=== PATIENT | male | born 1950 | race Caucasian/White ===

== ENCOUNTER 2016-08-26 04:01 | Inpatient (IN) | payer OTHER, BC ==
[~2016-08-26] VITALS: Ht 172.7 cm; Wt 87.0 kg
[~2016-08-26 04:01] MED LIST: AMLODIPINE-ATO1 EAC4 PO; ASPIR 8181 M1 PO; BENICAR20 MG PO; NORCO 5/3251 TABLET PO; PREDNISONE20 MG PO; ULORIC40 MG PO; VALIUM2 MG PO
[2016-08-26 04:40] LABS: HEMATOCRIT 42.8 % (38.0-50.0); MCH 29.5 PG (29.0-34.0); MCHC 34.8 G/DL (30.0-36.0); MCV 84.8 FL (86-99); MEAN PLAT.VOLUME 9.7 uM^3 (9.0-12.4); PLATELET COUNT 249 K/uL (156-360); RBC DIS.WIDTH-CV 13.6 % (11.8-14.6); RBC DIS.WIDTH-SD 41.5 % (39-53); RED BLOOD COUNT 5.05 M/uL (4.00-5.50); WHITE BLOOD COUNT 18.3 K/uL (4.1-10.2)
[2016-08-26 04:48] LABS: CHLORIDE 111 mEq/L (99-109); POTASSIUM 4.4 mEq/L (3.7-5.4); SODIUM 139 mEq/L (136-147)
[2016-08-26 04:50] LABS: GLUCOSE 102 mg/dL (70-99)
[2016-08-26 04:52] LABS: ANION GAP 8 MEQ/L (2-14)
[2016-08-26 04:54] LABS: GFR ESTIMATE (CALCULATED) > 59 mL/min/
[2016-08-26 04:55] LABS: UREA NITROGEN (BUN) 34 mg/dL (9-23)
[2016-08-26 06:50] LABS: ADD MIUA? NO; BILIRUBIN NEGATIVE; BLOOD NEGATIVE; COLOR YELLOW ((YELLOW)); GLUCOSE (STRIP) NEGATIVE; KETONES NEGATIVE; LEUKOCYTES NEGATIVE; NITRITE NEGATIVE; PROTEIN (STRIP) NEGATIVE; SPECIFIC GRAVITY 1.019 (1.000-1.030); UCUL ADDED? NO; UROBILINOGEN 0.2 MG/DL (0.2-1.0)
[2016-08-26 09:43] VITALS: BP 124/78
[2016-08-26 11:52] VITALS: BP 134/68
[2016-08-26 13:47] LABS: EOSINOPHIL (%) 0 % (0-5); HEMATOCRIT 41.2 % (38.0-50.0); IMMATURE GRANULOCYTE (%) 0.2 % (0.0-0.7); LYMPHOCYTE COUNT 0.6 K/uL (1.0-2.8); MCH 29.7 PG (29.0-34.0); MCHC 33.7 G/DL (30.0-36.0); MONOCYTE (%) 10.8 % (3-12); MONOCYTE COUNT 0.9 K/uL (0-0.8); NEUTROPHIL (%) 82.1 % (45-76); NEUTROPHIL COUNT 7.1 K/uL (1.8-6.4); RBC DIS.WIDTH-CV 13.9 % (11.8-14.6); RBC DIS.WIDTH-SD 44.1 % (39-53); RED BLOOD COUNT 4.68 M/uL (4.00-5.50)
[2016-08-26 13:49] LABS: ANION GAP 8 MEQ/L (2-14); CHLORIDE 108 MEQ/L (99-109); GFR ESTIMATE (CALCULATED) > 59 mL/min/; GLUCOSE 114 mg/dL (70-99); POTASSIUM 4.1 MEQ/L (3.7-5.4); SAMPLE HEMOLYSIS CHECK 0; SAMPLE ICTERIC CHECK 0; SAMPLE LIPEMIA CHECK 0; SODIUM 137 MEQ/L (136-147); UREA NITROGEN (BUN) 28 mg/dL (9-23)
[2016-08-26 13:56] LABS: WHITE BLOOD COUNT 8.6 K/uL (4.1-10.2)
[2016-08-26 14:25] LABS: MEAN PLAT.VOLUME 9.6 uM^3 (9.0-12.4); PLAT.SUFFICIENCY ADEQUATE; USER ID TLW
[2016-08-26 14:26] LABS: PLATELET COUNT 154 K/uL (156-360)
[2016-08-26 15:40] VITALS: BP 129/62
[2016-08-26] MEDS ORDERED: ULORIC40 MG PO (16:09)
[2016-08-26 19:52] VITALS: BP 107/65
[2016-08-26 23:48] VITALS: BP 106/61
[2016-08-27 03:47] VITALS: BP 115/72
[2016-08-27 07:18] VITALS: BP 131/72
[2016-08-27 07:28] LABS: HEMATOCRIT 41.2 % (38.0-50.0); MCH 29.5 PG (29.0-34.0); MCHC 33.5 G/DL (30.0-36.0); MEAN PLAT.VOLUME 10.5 uM^3 (9.0-12.4); PLATELET COUNT 179 K/uL (156-360); RBC DIS.WIDTH-CV 14.4 % (11.8-14.6); RBC DIS.WIDTH-SD 46.3 % (39-53); RED BLOOD COUNT 4.68 M/uL (4.00-5.50); WHITE BLOOD COUNT 13.8 K/uL (4.1-10.2)
[2016-08-27 07:34] LABS: ANION GAP 9 MEQ/L (2-14); CHLORIDE 107 MEQ/L (99-109); GFR ESTIMATE (CALCULATED) 59 mL/min/; GLUCOSE 117 mg/dL (70-99); POTASSIUM 4.2 MEQ/L (3.7-5.4); SAMPLE HEMOLYSIS CHECK 0; SAMPLE ICTERIC CHECK 0; SAMPLE LIPEMIA CHECK 0; SODIUM 139 MEQ/L (136-147); UREA NITROGEN (BUN) 21 mg/dL (9-23)
[2016-08-27 15:37] VITALS: BP 138/74
[2016-08-28 00:04] VITALS: BP 137/78
[2016-08-28 07:00] VITALS: BP 147/87
[2016-08-28 07:39] LABS: HEMATOCRIT 42.9 % (38.0-50.0); MCH 29.8 PG (29.0-34.0); MCHC 33.8 G/DL (30.0-36.0); MCV 88.1 FL (86-99); MEAN PLAT.VOLUME 10.4 uM^3 (9.0-12.4); PLATELET COUNT 197 K/uL (156-360); RBC DIS.WIDTH-CV 14.3 % (11.8-14.6); RBC DIS.WIDTH-SD 45.9 % (39-53); RED BLOOD COUNT 4.87 M/uL (4.00-5.50); WHITE BLOOD COUNT 15.6 K/uL (4.1-10.2)
[2016-08-28 08:07] LABS: ANION GAP 8 MEQ/L (2-14); CHLORIDE 106 MEQ/L (99-109); GFR ESTIMATE (CALCULATED) > 59 mL/min/; GLUCOSE 145 mg/dL (70-99); MAGNESIUM 1.7 mg/dl (1.3-2.7); POTASSIUM 4.3 MEQ/L (3.7-5.4); SAMPLE HEMOLYSIS CHECK 0; SAMPLE ICTERIC CHECK 0; SAMPLE LIPEMIA CHECK 0; SODIUM 134 MEQ/L (136-147); UREA NITROGEN (BUN) 14 mg/dL (9-23)
[2016-08-28 15:33] VITALS: BP 140/78
[2016-08-28 19:18] VITALS: BP 144/82
[2016-08-29] VITALS: BP 153/88
[2016-08-29 06:31] LABS: HEMATOCRIT 38.1 % (38.0-50.0); MCH 30.2 PG (29.0-34.0); MCHC 35.4 G/DL (30.0-36.0); MCV 85.2 FL (86-99); MEAN PLAT.VOLUME 10.5 uM^3 (9.0-12.4); PLATELET COUNT 193 K/uL (156-360); RBC DIS.WIDTH-SD 43.4 % (39-53); RED BLOOD COUNT 4.47 M/uL (4.00-5.50); WHITE BLOOD COUNT 15.3 K/uL (4.1-10.2)
[2016-08-29 06:57] LABS: ALKALINE PHOSPHATASE 65 IU/L (3-129); ALKALINE PHOSPHATASE 66 IU/L (3-129); ANION GAP 11 MEQ/L (2-14); CHLORIDE 108 MEQ/L (99-109); DIRECT BILIRUBIN 0.4 mg/dL (0.0-0.3); GFR ESTIMATE (CALCULATED) > 59 mL/min/; GLUCOSE 142 mg/dL (70-99); MAGNESIUM 1.7 mg/dl (1.3-2.7); POTASSIUM 3.6 MEQ/L (3.7-5.4); PREALBUMIN 8.6 mg/dL (10-40); SAMPLE HEMOLYSIS CHECK 0; SAMPLE ICTERIC CHECK 0; SAMPLE LIPEMIA CHECK 0; SODIUM 140 MEQ/L (136-147); TOTAL BILIRUBIN 1.1 MG/DL (0.0-1.0); TRIGLYCERIDES 97 MG/DL (Normal: <150); UREA NITROGEN (BUN) 17 mg/dL (9-23)
[2016-08-29 08:01] VITALS: BP 136/70
[2016-08-29 11:36] VITALS: BP 168/80
[2016-08-29 19:42] VITALS: BP 160/78
[2016-08-29 23:44] VITALS: BP 147/76
[2016-08-30 03:48] VITALS: BP 145/68
[2016-08-30 07:20] VITALS: BP 163/88
[2016-08-30 07:26] LABS: HEMATOCRIT 36.6 % (38.0-50.0); MCH 29.3 PG (29.0-34.0); MCHC 34.7 G/DL (30.0-36.0); MCV 84.3 FL (86-99); MEAN PLAT.VOLUME 10.1 uM^3 (9.0-12.4); PLATELET COUNT 193 K/uL (156-360); RBC DIS.WIDTH-CV 14.2 % (11.8-14.6); RED BLOOD COUNT 4.34 M/uL (4.00-5.50); WHITE BLOOD COUNT 12.9 K/uL (4.1-10.2)
[2016-08-30 07:46] LABS: ANION GAP 11 MEQ/L (2-14); CHLORIDE 109 MEQ/L (99-109); GFR ESTIMATE (CALCULATED) > 59 mL/min/; GLUCOSE 130 mg/dL (70-99); MAGNESIUM 1.9 mg/dl (1.3-2.7); POTASSIUM 3.6 MEQ/L (3.7-5.4); SAMPLE HEMOLYSIS CHECK 0; SAMPLE ICTERIC CHECK 0; SAMPLE LIPEMIA CHECK 0; SODIUM 141 MEQ/L (136-147); UREA NITROGEN (BUN) 19 mg/dL (9-23)
[2016-08-30 11:35] VITALS: BP 154/81
[2016-08-30 15:55] VITALS: BP 155/88
[2016-08-30 19:34] VITALS: BP 138/75
[2016-08-30 23:42] VITALS: BP 159/94
[2016-08-31 03:45] VITALS: BP 151/87
[2016-08-31 06:02] LABS: HEMATOCRIT 36.4 % (38.0-50.0); MCH 29.5 PG (29.0-34.0); MCHC 34.6 G/DL (30.0-36.0); MCV 85.2 FL (86-99); MEAN PLAT.VOLUME 10.2 uM^3 (9.0-12.4); PLATELET COUNT 207 K/uL (156-360); RBC DIS.WIDTH-CV 14.3 % (11.8-14.6); RBC DIS.WIDTH-SD 44.5 % (39-53); RED BLOOD COUNT 4.27 M/uL (4.00-5.50); WHITE BLOOD COUNT 14.2 K/uL (4.1-10.2)
[2016-08-31 06:28] LABS: ANION GAP 12 MEQ/L (2-14); CHLORIDE 107 MEQ/L (99-109); GFR ESTIMATE (CALCULATED) > 59 mL/min/; GLUCOSE 152 mg/dL (70-99); MAGNESIUM 1.9 mg/dl (1.3-2.7); POTASSIUM 3.5 MEQ/L (3.7-5.4); SAMPLE HEMOLYSIS CHECK 0; SAMPLE ICTERIC CHECK 0; SAMPLE LIPEMIA CHECK 0; SODIUM 138 MEQ/L (136-147); UREA NITROGEN (BUN) 19 mg/dL (9-23)
[2016-08-31 07:28] VITALS: BP 140/78
[2016-08-31 16:30] VITALS: BP 173/84
[2016-09-01 00:29] VITALS: BP 145/79
[2016-09-01 07:36] LABS: ANION GAP 11 MEQ/L (2-14); CHLORIDE 105 MEQ/L (99-109); GFR ESTIMATE (CALCULATED) > 59 mL/min/; GLUCOSE 127 mg/dL (70-99); HEMATOCRIT 36.9 % (38.0-50.0); MAGNESIUM 1.9 mg/dl (1.3-2.7); MCH 29.7 PG (29.0-34.0); MCHC 34.7 G/DL (30.0-36.0); MCV 85.6 FL (86-99); PLATELET COUNT 214 K/uL (156-360); POTASSIUM 3.9 MEQ/L (3.7-5.4); RBC DIS.WIDTH-CV 14.2 % (11.8-14.6); RBC DIS.WIDTH-SD 44.3 % (39-53); RED BLOOD COUNT 4.31 M/uL (4.00-5.50); SAMPLE HEMOLYSIS CHECK 0; SAMPLE ICTERIC CHECK 0; SAMPLE LIPEMIA CHECK 0; SODIUM 137 MEQ/L (136-147); UREA NITROGEN (BUN) 17 mg/dL (9-23)
[2016-09-01 07:42] LABS: WHITE BLOOD COUNT 18.7 K/uL (4.1-10.2)
[2016-09-01 08:00] VITALS: BP 138/75
[2016-09-01 15:52] VITALS: BP 148/81
[2016-09-02] VITALS (11 sets, daily range): BP systolic 126–148; BP diastolic 71–93
[2016-09-02 08:43] LABS: HEMATOCRIT 39.2 % (38.0-50.0); MCH 29.6 PG (29.0-34.0); MCHC 35.2 G/DL (30.0-36.0); MCV 84.1 FL (86-99); MEAN PLAT.VOLUME 9.8 uM^3 (9.0-12.4); PLATELET COUNT 231 K/uL (156-360); RBC DIS.WIDTH-CV 14.2 % (11.8-14.6); RBC DIS.WIDTH-SD 43.2 % (39-53); RED BLOOD COUNT 4.66 M/uL (4.00-5.50)
[2016-09-02 09:04] LABS: ANION GAP 12 MEQ/L (2-14); CHLORIDE 107 MEQ/L (99-109); GFR ESTIMATE (CALCULATED) > 59 mL/min/; GLUCOSE 136 mg/dL (70-99); MAGNESIUM 1.9 mg/dl (1.3-2.7); SAMPLE HEMOLYSIS CHECK 0; SAMPLE ICTERIC CHECK 0; SAMPLE LIPEMIA CHECK 0; SODIUM 138 MEQ/L (136-147); UREA NITROGEN (BUN) 19 mg/dL (9-23)
[2016-09-02 16:51] LABS: METH RESISTANT S AUREUS PCR NEGATIVE (NEGATIVE)
[2016-09-02 16:58] LABS: PROBE CHECK PASS; SPECIMEN PROCESSING CONTROL PASS
[2016-09-03] VITALS (23 sets, daily range): BP systolic 120–154; BP diastolic 72–85
[2016-09-03 05:40] LABS: HEMATOCRIT 34.6 % (38.0-50.0); MCH 29.4 PG (29.0-34.0); MCHC 34.4 G/DL (30.0-36.0); MCV 85.4 FL (86-99); MEAN PLAT.VOLUME 10.1 uM^3 (9.0-12.4); PLATELET COUNT 196 K/uL (156-360); RBC DIS.WIDTH-CV 14.3 % (11.8-14.6); RBC DIS.WIDTH-SD 44.6 % (39-53); RED BLOOD COUNT 4.05 M/uL (4.00-5.50); WHITE BLOOD COUNT 25.6 K/uL (4.1-10.2)
[2016-09-03 06:23] LABS: ANION GAP 7 MEQ/L (2-14); CHLORIDE 108 MEQ/L (99-109); GFR ESTIMATE (CALCULATED) > 59 mL/min/; GLUCOSE 180 mg/dL (70-99); POTASSIUM 4.8 MEQ/L (3.7-5.4); SAMPLE HEMOLYSIS CHECK 0; SAMPLE ICTERIC CHECK 0; SAMPLE LIPEMIA CHECK 0; SODIUM 136 MEQ/L (136-147); UREA NITROGEN (BUN) 23 mg/dL (9-23)
[2016-09-04] VITALS (20 sets, daily range): BP systolic 116–152; BP diastolic 64–84
[2016-09-04 08:58] LABS: HEMATOCRIT 29.8 % (38.0-50.0); MCH 29.6 PG (29.0-34.0); MCHC 34.6 G/DL (30.0-36.0); MCV 85.6 FL (86-99); MEAN PLAT.VOLUME 10.1 uM^3 (9.0-12.4); PLATELET COUNT 198 K/uL (156-360); RBC DIS.WIDTH-CV 14.8 % (11.8-14.6); RBC DIS.WIDTH-SD 46.2 % (39-53); RED BLOOD COUNT 3.48 M/uL (4.00-5.50)
[2016-09-04 09:20] LABS: ALKALINE PHOSPHATASE 92 IU/L (3-129); ANION GAP 9 MEQ/L (2-14); CHLORIDE 110 MEQ/L (99-109); GFR ESTIMATE (CALCULATED) > 59 mL/min/; GLUCOSE 138 mg/dL (70-99); POTASSIUM 4.4 MEQ/L (3.7-5.4); PREALBUMIN 12.5 mg/dL (10-40); SAMPLE HEMOLYSIS CHECK 0; SAMPLE ICTERIC CHECK 0; SAMPLE LIPEMIA CHECK 0; SODIUM 141 MEQ/L (136-147); TRIGLYCERIDES 117 MG/DL (Normal: <150); UREA NITROGEN (BUN) 25 mg/dL (9-23)
[2016-09-04 09:31] LABS: DIRECT BILIRUBIN 1.2 mg/dL (0.0-0.3); TOTAL BILIRUBIN 1.8 MG/DL (0.0-1.0)
[2016-09-05 03:11] VITALS: BP 139/72
[2016-09-05 06:47] LABS: HEMATOCRIT 30.2 % (38.0-50.0); MCH 29.1 PG (29.0-34.0); MCHC 33.8 G/DL (30.0-36.0); MCV 86.3 FL (86-99); MEAN PLAT.VOLUME 10.9 uM^3 (9.0-12.4); PLATELET COUNT 222 K/uL (156-360); RBC DIS.WIDTH-CV 14.8 % (11.8-14.6); RBC DIS.WIDTH-SD 46.6 % (39-53)
[2016-09-05 07:14] LABS: ANION GAP 10 MEQ/L (2-14); CHLORIDE 108 MEQ/L (99-109); GFR ESTIMATE (CALCULATED) > 59 mL/min/; GLUCOSE 137 mg/dL (70-99); MAGNESIUM 2.1 mg/dl (1.3-2.7); POTASSIUM 4.2 MEQ/L (3.7-5.4); SAMPLE HEMOLYSIS CHECK 0; SAMPLE ICTERIC CHECK 0; SAMPLE LIPEMIA CHECK 0; SODIUM 140 MEQ/L (136-147); UREA NITROGEN (BUN) 26 mg/dL (9-23)
[2016-09-05 09:13] VITALS: BP 128/58
[2016-09-05 09:32] LABS: URINE UREA NITROGEN 22575 MG/24 HR
[2016-09-05 16:30] VITALS: BP 138/72
[2016-09-05 20:00] VITALS: BP 142/64
[2016-09-05 23:57] VITALS: BP 125/61
[2016-09-06 04:00] VITALS: BP 130/72
[2016-09-06 08:10] LABS: ANION GAP 10 MEQ/L (2-14); CHLORIDE 111 MEQ/L (99-109); GFR ESTIMATE (CALCULATED) > 59 mL/min/; GLUCOSE 149 mg/dL (70-99); MAGNESIUM 2.3 mg/dl (1.3-2.7); POTASSIUM 4.3 MEQ/L (3.7-5.4); SAMPLE HEMOLYSIS CHECK 0; SAMPLE ICTERIC CHECK 0; SAMPLE LIPEMIA CHECK 0; SODIUM 142 MEQ/L (136-147); UREA NITROGEN (BUN) 28 mg/dL (9-23)
[2016-09-06 08:12] LABS: MCH 28.7 PG (29.0-34.0); MCHC 33.6 G/DL (30.0-36.0); MCV 85.3 FL (86-99); RBC DIS.WIDTH-CV 14.1 % (11.8-14.6); RBC DIS.WIDTH-SD 43.1 % (39-53); RED BLOOD COUNT 3.87 M/uL (4.00-5.50); WHITE BLOOD COUNT 17.6 K/uL (4.1-10.2)
[2016-09-06 08:19] LABS: MEAN PLAT.VOLUME 10.7 uM^3 (9.0-12.4)
[2016-09-06 08:25] LABS: PLATELET COUNT 338 K/uL (156-360)
[2016-09-06 08:30] VITALS: BP 167/76
[2016-09-06 11:30] VITALS: BP 146/74
[2016-09-06 16:35] VITALS: BP 144/79
[2016-09-06 20:00] VITALS: BP 142/68
[2016-09-07 00:21] VITALS: BP 107/60
[2016-09-07 05:03] VITALS: BP 129/74
[2016-09-07 06:24] LABS: ANION GAP 10 MEQ/L (2-14); CHLORIDE 113 MEQ/L (99-109); GFR ESTIMATE (CALCULATED) > 59 mL/min/; GLUCOSE 144 mg/dL (70-99); MAGNESIUM 2.2 mg/dl (1.3-2.7); POTASSIUM 4.1 MEQ/L (3.7-5.4); SAMPLE HEMOLYSIS CHECK 0; SAMPLE ICTERIC CHECK 0; SAMPLE LIPEMIA CHECK 0; SODIUM 143 MEQ/L (136-147); UREA NITROGEN (BUN) 31 mg/dL (9-23)
[2016-09-07 07:41] VITALS: BP 135/75
[2016-09-07 16:06] VITALS: BP 150/76
[2016-09-07 19:50] VITALS: BP 139/82
[2016-09-08 00:12] VITALS: BP 144/85
[2016-09-08 06:20] LABS: HEMATOCRIT 30.7 % (38.0-50.0); MCH 29.3 PG (29.0-34.0); MCHC 33.9 G/DL (30.0-36.0); MCV 86.5 FL (86-99); MEAN PLAT.VOLUME 10.9 uM^3 (9.0-12.4); PLATELET COUNT 374 K/uL (156-360); RBC DIS.WIDTH-CV 14.5 % (11.8-14.6); RBC DIS.WIDTH-SD 45.6 % (39-53); RED BLOOD COUNT 3.55 M/uL (4.00-5.50); WHITE BLOOD COUNT 13.7 K/uL (4.1-10.2)
[2016-09-08 06:45] LABS: ANION GAP 10 MEQ/L (2-14); CHLORIDE 109 MEQ/L (99-109); GFR ESTIMATE (CALCULATED) > 59 mL/min/; GLUCOSE 135 mg/dL (70-99); POTASSIUM 3.9 MEQ/L (3.7-5.4); SAMPLE HEMOLYSIS CHECK 0; SAMPLE ICTERIC CHECK 0; SAMPLE LIPEMIA CHECK 0; SODIUM 138 MEQ/L (136-147); UREA NITROGEN (BUN) 29 mg/dL (9-23)
[2016-09-08 08:01] VITALS: BP 137/78
[2016-09-08 12:14] VITALS: BP 146/78
[2016-09-08 16:37] VITALS: BP 142/75
[2016-09-08 20:08] VITALS: BP 144/79
[2016-09-08 23:43] VITALS: BP 145/84
[2016-09-09 04:42] VITALS: BP 133/74
[2016-09-09 05:39] LABS: HEMATOCRIT 29.4 % (38.0-50.0); MCH 28.4 PG (29.0-34.0); MCV 86.2 FL (86-99); MEAN PLAT.VOLUME 10.6 uM^3 (9.0-12.4); PLATELET COUNT 369 K/uL (156-360); RBC DIS.WIDTH-CV 14.5 % (11.8-14.6); RBC DIS.WIDTH-SD 45.3 % (39-53); RED BLOOD COUNT 3.41 M/uL (4.00-5.50); WHITE BLOOD COUNT 13.7 K/uL (4.1-10.2)
[2016-09-09 06:07] LABS: ANION GAP 10 MEQ/L (2-14); CHLORIDE 110 MEQ/L (99-109); GFR ESTIMATE (CALCULATED) > 59 mL/min/; MAGNESIUM 1.9 mg/dl (1.3-2.7); POTASSIUM 4.3 MEQ/L (3.7-5.4); SAMPLE HEMOLYSIS CHECK 0; SAMPLE ICTERIC CHECK 0; SAMPLE LIPEMIA CHECK 0; SODIUM 139 MEQ/L (136-147); UREA NITROGEN (BUN) 26 mg/dL (9-23)
[2016-09-09 06:09] LABS: GLUCOSE 89 mg/dL (70-99)
[2016-09-09 07:32] VITALS: BP 132/77
[2016-09-09 12:04] VITALS: BP 144/80
[2016-09-09 16:03] VITALS: BP 128/76
[2016-09-09 20:21] VITALS: BP 146/77
[2016-09-10 00:44] VITALS: BP 131/63
[2016-09-10 04:34] VITALS: BP 133/62
[2016-09-10 06:36] LABS: HEMATOCRIT 32.1 % (38.0-50.0); MCH 29.6 PG (29.0-34.0); MCHC 34.6 G/DL (30.0-36.0); MCV 85.6 FL (86-99); MEAN PLAT.VOLUME 10.4 uM^3 (9.0-12.4); PLATELET COUNT 358 K/uL (156-360); RBC DIS.WIDTH-CV 14.2 % (11.8-14.6); RBC DIS.WIDTH-SD 43.7 % (39-53); RED BLOOD COUNT 3.75 M/uL (4.00-5.50); WHITE BLOOD COUNT 13.2 K/uL (4.1-10.2)
[2016-09-10 07:00] LABS: ANION GAP 10 MEQ/L (2-14); CHLORIDE 107 MEQ/L (99-109); GFR ESTIMATE (CALCULATED) > 59 mL/min/; GLUCOSE 92 mg/dL (70-99); MAGNESIUM 1.8 mg/dl (1.3-2.7); POTASSIUM 4.3 MEQ/L (3.7-5.4); SAMPLE HEMOLYSIS CHECK 0; SAMPLE ICTERIC CHECK 0; SAMPLE LIPEMIA CHECK 0; SODIUM 138 MEQ/L (136-147); UREA NITROGEN (BUN) 21 mg/dL (9-23)
[2016-09-10 07:58] VITALS: BP 127/79
[2016-09-10] MEDS ORDERED: CIPRO500 MG PO (14:37)
[2016-09-10] MEDS ORDERED: FLAGYL500 MG PO (14:37)
== END 2016-09-10 18:06 | disposition home or self-care (01) | DRG 853 ==
LOC: EME 04:01 → 4WEST 06:25 → EDOF 06:25 → 2EAST 06:25 → 3EAST 06:25 → 2EAST 09:18 → 4WEST 09-02 14:36 → 3EAST 09-04 17:17
PROVIDERS: Emergency Medicine; Physician Assistant; Surgery
PROC: 3E0436Z Introduction of Nutritional Substance into Central Vein, Percutaneous Approach (ICD-10-PCS; principal; 2016-08-28)
PROC: 0WQF4ZZ Repair Abdominal Wall, Percutaneous Endoscopic Approach (ICD-10-PCS; 2016-08-29)
PROC: 0DN84ZZ Release Small Intestine, Percutaneous Endoscopic Approach (ICD-10-PCS; 2016-08-29)
PROC: 0W9G40Z Drainage of Peritoneal Cavity with Drainage Device, Percutaneous Endoscopic Approach (ICD-10-PCS; 2016-08-29)
PROC: 3E1M38Z Irrigation of Peritoneal Cavity using Irrigating Substance, Percutaneous Approach (ICD-10-PCS; 2016-08-29)
PROC: 0W9G0ZZ Drainage of Peritoneal Cavity, Open Approach (ICD-10-PCS; 2016-09-02)
PROC: 0DTM0ZZ Resection of Descending Colon, Open Approach (ICD-10-PCS; 2016-09-02)
PROC: 0DTS0ZZ (ICD-10-PCS; 2016-09-02)
PROC: 0DTJ0ZZ Resection of Appendix, Open Approach (ICD-10-PCS; 2016-09-02)
PROC: 0DTL0ZZ Resection of Transverse Colon, Open Approach (ICD-10-PCS; 2016-09-02)
PROC: 0DBA0ZX Excision of Jejunum, Open Approach, Diagnostic (ICD-10-PCS; 2016-09-02)
PROC: 0DNW0ZZ Release Peritoneum, Open Approach (ICD-10-PCS; 2016-09-02)
PROC: 0DTN0ZZ Resection of Sigmoid Colon, Open Approach (ICD-10-PCS; 2016-09-02)
DX: A41.9 Sepsis, unspecified organism (principal); E43 Unspecified severe protein-calorie malnutrition; K57.20 Diverticulitis of large intestine with perforation and abscess without bleeding; K56.5 Intestinal adhesions [bands] with obstruction (postinfection); E83.39 Other disorders of phosphorus metabolism; K42.0 Umbilical hernia with obstruction, without gangrene; K56.7 Ileus, unspecified; D64.9 Anemia, unspecified; G47.00 Insomnia, unspecified; K31.84 Gastroparesis; K21.9 Gastro-esophageal reflux disease without esophagitis; I10 Essential (primary) hypertension; F41.9 Anxiety disorder, unspecified; M10.9 Gout, unspecified; Z88.5 Allergy status to narcotic agent; Z88.6 Allergy status to analgesic agent; E83.51 Hypocalcemia
CPT/HCPCS: 74020; 74176; 76937; 80048; 80048 91; 80053; 80076; 80200; 80202; 81003; 81050; 83605; 83735; 84100; 84134; 84478; 84540; 84630 90; 85025; 85027; 87040; 87070; 87075; 87076; 87077; 87086; 87185; 87186; 87205; 87641; 88302; 88305; 88307; 94640; 94640 76; 94799; 97530 GO; 97530 GP; 99202; 99281; 99285; C1751; C1769; G0008; J0131; J1100; J1170; J1450; J1644; J1650; J1885; J2250; J2270; J2405; J2543; J2710; J2765; J3010; J3260; J3370; J3480; J7030; J7050; S0030

== ENCOUNTER → 2017-02-21 | Outpatient (CLI) | payer MEDICARE, BC ==
[~2017-02-21] MED LIST changes: +CIPRO500 MG PO; +FLAGYL500 MG PO
== END | disposition home or self-care (01) ==
LOC: CDC 08:14
DX: M54.12 Radiculopathy, cervical region (principal); R94.31 Abnormal electrocardiogram [ECG] [EKG]
CPT/HCPCS: 93000

== ENCOUNTER 2017-08-24 18:28 | Observation (INO) | payer OTHER, BC ==
[~2017-08-24] VITALS: Ht 177.8 cm; Wt 93.4 kg
[2017-08-24 19:31] LABS: HEMATOCRIT 47.9 % (38.0-50.0); HEMOGLOBIN 16.9 G/DL (12.5-16.6); MCHC 35.3 G/DL (30.0-36.0); MCV 87.7 FL (86-99); PLATELET COUNT 217 K/uL (156-360); RBC DIS.WIDTH-CV 11.6 % (11.8-14.6); RBC DIS.WIDTH-SD 37.2 % (39-53); RED BLOOD COUNT 5.46 M/uL (4.00-5.50); WHITE BLOOD COUNT 13.1 K/uL (4.1-10.2)
[2017-08-24 19:43] LABS: CHLORIDE 108 mEq/L (99-109); POTASSIUM 4.5 mEq/L (3.7-5.4); SODIUM 141 mEq/L (136-147)
[2017-08-24 19:45] LABS: GLUCOSE 125 mg/dL (70-99)
[2017-08-24 19:49] LABS: CREATININE 1.7 mg/dL (0.6-1.3); GFR ESTIMATE (CALCULATED) 43 mL/min/ (58.99-99999)
[2017-08-24 19:50] LABS: UREA NITROGEN (BUN) 23 mg/dL (9-23)
[2017-08-24 21:04] LABS: APPEARANCE CLEAR ((CLEAR)); BILIRUBIN NEGATIVE; BLOOD LARGE; COLOR YELLOW ((YELLOW)); GLUCOSE (STRIP) NEGATIVE; KETONES NEGATIVE; LEUKOCYTES NEGATIVE; NITRITE NEGATIVE; PROTEIN (STRIP) 30; SPECIFIC GRAVITY 1.018 (1.000-1.030); UROBILINOGEN 0.2 MG/DL (0.2-1.0)
[2017-08-24 21:24] LABS: BACTERIA RARE /HPF; EPITHELIAL CELLS RARE /HPF; MUCUS TRACE /LPF; RED BLOOD CELLS TNTC /HPF (0-5); UCUL ADDED? YES; WHITE BLOOD CELLS 0-5 /HPF (0-5)
[2017-08-24] MEDS ORDERED: TYLENOL REGULA325 MG PO (23:05)
[2017-08-24] MEDS ORDERED: OMEGA 3-6-9 CO400 MG PO (23:05)
[2017-08-24] MEDS ORDERED: FLONASE16 G1 BOTH NARES (23:06)
[2017-08-25 00:30] VITALS: BP 125/71
[2017-08-25 04:00] VITALS: BP 122/70
[2017-08-25 06:32] LABS: CHLORIDE 111 MEQ/L (99-109); GFR ESTIMATE (CALCULATED) 36 mL/min/ (58.99-99999); GLUCOSE 115 mg/dL (70-99); POTASSIUM 5.1 MEQ/L (3.7-5.4); SODIUM 140 MEQ/L (136-147); UREA NITROGEN (BUN) 26 mg/dL (9-23)
[2017-08-25 09:00] VITALS: BP 130/70
[2017-08-25 19:30] VITALS: BP 115/67
[2017-08-26] VITALS: BP 105/60
[2017-08-26 04:00] VITALS: BP 110/62
[2017-08-26 06:31] LABS: HEMATOCRIT 40.3 % (38.0-50.0); MCH 30.7 PG (29.0-34.0); MCHC 33.5 G/DL (30.0-36.0); MCV 91.6 FL (86-99); PLATELET COUNT 154 K/uL (156-360); RBC DIS.WIDTH-CV 11.8 % (11.8-14.6); RBC DIS.WIDTH-SD 39.8 % (39-53); WHITE BLOOD COUNT 9.2 K/uL (4.1-10.2)
[2017-08-26 06:33] LABS: HEMOGLOBIN 13.5 G/DL (12.5-16.6)
[2017-08-26 06:52] LABS: CHLORIDE 112 MEQ/L (99-109); CREATININE 2.4 MG/DL (0.6-1.3); GFR ESTIMATE (CALCULATED) 29 mL/min/ (58.99-99999); GLUCOSE 92 mg/dL (70-99); POTASSIUM 4.4 MEQ/L (3.7-5.4); SODIUM 144 MEQ/L (136-147); UREA NITROGEN (BUN) 24 mg/dL (9-23)
[2017-08-26 09:00] VITALS: BP 115/70
[2017-08-26 10:33] LABS: CREATINE KINASE 114 IU/L (1-294); PHOSPHORUS 2.9 mg/dL (2.5-4.9)
[2017-08-26 12:00] VITALS: BP 119/69
[2017-08-26] MEDS ORDERED: CEFTIN500 MG PO (14:41)
[2017-08-26] MEDS ORDERED: TAMSULOSIN HCL0.4 MG PO (14:43)
[2017-08-26] MEDS ORDERED: PERCOCET 5/31 TABLET PO (14:43)
== END 2017-08-26 15:22 | disposition home or self-care (01) ==
LOC: EME 18:28 → EDOF 23:11 → ENRESERV 23:13 → 5WEST 08-25 00:02
PROVIDERS: Internal Medicine; Physician Assistant; Physician Assistant Medical
DX: N13.6 Pyonephrosis (principal); N17.9 Acute kidney failure, unspecified; N28.1 Cyst of kidney, acquired; Z87.442 Personal history of urinary calculi; I12.9 Hypertensive chronic kidney disease with stage 1 through stage 4 chronic kidney disease, or unspecified chronic kidney disease; N18.2 Chronic kidney disease, stage 2 (mild); K21.9 Gastro-esophageal reflux disease without esophagitis; Z87.19 Personal history of other diseases of the digestive system; F41.9 Anxiety disorder, unspecified; M10.9 Gout, unspecified; M51.36 Other intervertebral disc degeneration, lumbar region; M47.812 Spondylosis without myelopathy or radiculopathy, cervical region; Z98.1 Arthrodesis status; Z79.82 Long term (current) use of aspirin; Z88.5 Allergy status to narcotic agent; Z88.8 Allergy status to other drugs, medicaments and biological substances
CPT/HCPCS: 74176; 76770; 80048; 81003; 82550; 82570; 83735; 84100; 84156; 84300; 85027; 87086 GA; 94799; 99281; 99285; G0378; J0692; J0696; J1885; J2270; J2405; J2765; J3010; J7030